=== PATIENT | male | born 1995 | race Caucasian/White ===

== ENCOUNTER 2022-07-16 20:29 | Emergency (ER) | payer OTHER ==
[~2022-07-16] VITALS: Ht 180.3 cm; Wt 68.0 kg
[~2022-07-16 20:29] MED LIST: ADVIL200 MG PO; BACTRIM DS TAB1 EACH PO
[2022-07-16] MEDS ORDERED: HYDROXYZINE HCL50 MG PO (20:39)
[2022-07-16 22:11] VITALS: BP 132/96
== END 2022-07-16 22:12 | disposition home or self-care (01) ==
LOC: ED 20:29
DX: T14.8XXA Other injury of unspecified body region, initial encounter (principal); W10.8XXA Fall (on) (from) other stairs and steps, initial encounter; M54.2 Cervicalgia; M54.6 Pain in thoracic spine; M54.50 Low back pain, unspecified; R51.9 Headache, unspecified; F17.200 Nicotine dependence, unspecified, uncomplicated; Z79.899 Other long term (current) drug therapy
CPT/HCPCS: 36415; 70450; 71260; 72125; 74177; 80053; 85025; 86850; 86900; 86901; 99284-25; G0480; Q9967

== ENCOUNTER 2022-09-15 23:47 | Emergency (ER) | payer OTHER ==
[~2022-09-15] VITALS: Ht 175.3 cm; Wt 77.1 kg
[~2022-09-15 23:47] MED LIST changes: +HYDROXYZINE HCL50 MG PO
[2022-09-16 00:58] VITALS: BP 172/95
--- NOTE | 2022-09-18 06:56 | EKG ---
[facility] [address] [facility] [place], [place] [address] Signed Sinus tachycardia Otherwise normal ECG No previous ECGs available Confirmed by CHETNA HEARD MD ([id number]) on 09/18/2022 6:56:11 AM Electronically Signed By: CHETNA HEARD 09/18/22 [id number] PATIENT NAME: QUENTIN FELIPE Electrocardiogram DATE OF : [birth year] PHYSICIAN: CHETNA HEARD REPORT #: [id number] REPORT IS CONFIDENTIAL AND NOT TO BE RELEASED WITHOUT AUTHORIZATION
== END 2022-09-16 00:58 | disposition other institution, planned readmission (95) ==
LOC: ED 23:47
DX: T43.651A Poisoning by methamphetamines accidental (unintentional), initial encounter (principal); R06.02 Shortness of breath; F15.10 Other stimulant abuse, uncomplicated; E87.6 Hypokalemia; F17.200 Nicotine dependence, unspecified, uncomplicated; Z79.899 Other long term (current) drug therapy
CPT/HCPCS: 36415; 71045; 80053; 84443; 85025; 93005; 93010; 99285 25; G0480; J2060; J7121